=== PATIENT | female | born 1975 | race African-American/Black ===

== ENCOUNTER 2017-05-24 18:04 | Emergency (ER) | payer OTHER, MEDICAID ==
[~2017-05-24] VITALS: Ht 167.6 cm; Wt 110.0 kg
[~2017-05-24 18:04] MED LIST: NO MEDS.
[2017-05-24 18:09] VITALS: BP 144/91
== END 2017-05-24 20:46 | disposition left against medical advice (07) ==
LOC: ER 18:09
DX: R10.9 Unspecified abdominal pain (principal); Z53.21 Procedure and treatment not carried out due to patient leaving prior to being seen by health care provider

== ENCOUNTER 2020-06-22 21:18 | Emergency (ER) | payer MEDICAID, OTHER ==
[~2020-06-22] VITALS: Ht 167.6 cm; Wt 143.0 kg
[2020-06-22 21:24] VITALS: BP 144/90
[2020-06-22] MEDS ORDERED: NITROGLYCERIN 0.4MG TABLET SL SL PRN (23:30)
[2020-06-22] MEDS ORDERED: ASPIRIN 81MG TABLET PO ONE (23:30)
[2020-06-23 01:18] LABS: BASOPHILS % 1.1 % (0.0-2.0); EOSINOPHILS % 0.5 % (0.0-5.0); HEMATOCRIT. 39.3 % (36.0-48.0); HEMOGLOBIN. 13.6 g/dL (12.0-16.0); LYMPHOCYTES % 21.6 % (20.0-50.0); MEAN CORPUSCULAR HEMOGLOBIN 32.1 pg (28.0-32.0); MEAN CORPUSCULAR VOLUME 93.1 fL (81.0-99.0); MEAN PLATELET VOLUME 8.5 fl (7.4-10.4); MONOCYTES % 4.4 % (2.0-8.0); NEUTROPHILS % 72.4 % (40.0-76.0); PLATELET 277 x1000/uL (130-400); RED BLOOD CELL COUNT 4.22 mill/uL (4.2-5.4); RED CELL DISTRIBUTION WIDTH 12.9 % (11.6-14.6)
[2020-06-23 01:28] LABS: CHLORIDE 105 mEq/L (98-107)
== END 2020-06-23 00:30 | disposition left against medical advice (07) ==
LOC: ER 21:18
DX: Z53.21 Procedure and treatment not carried out due to patient leaving prior to being seen by health care provider (principal); R07.9 Chest pain, unspecified; R42 Dizziness and giddiness
CPT/HCPCS: 36415; 80053; 83880; 84484; 85025; 93005